=== PATIENT | female | born 1940 | race Caucasian/White ===

== ENCOUNTER 2024-12-01 08:09 | Emergency (ER) | payer MEDICARE, OTHER, SELFPAY ==
--- OUTSIDE RECORDS SUMMARY | 2024-12-01 08:18 | XMS_ITS | Clinical Summary ---
Author Organization [facility] Address [address] [place] [address] Care Team Providers Care Well Cleaner Name Role Phone Andres Doherty MD Primary Care Provider Allergies No known active allergies Medications azithromycin (Zithromax) 250 MG tabletIndication s:Acute bacterial pharyngitis Take 2 tablets orally x 1 day, then 1 tablet orally x 4 days 6 tablet 10/06/2022 Active loratadine-pseud oephedrine ER (Claritin-D 12 Hour) 5-120 MG 12 hr tabletIndication s:Acute bacterial pharyngitis Take 1 tablet by mouth in the morning and 1 tablet before bedtime. Do all this for 7 days. Do not crush, chew, or split. . 14 tablet 10/06/2022 Active Active Problems Problem Noted Date Diagnosed Date Acute bacterial pharyngitis 10/06/2022 Social History Tobacco Use Types Packs/Day Years Used Date Smoking Tobacco: Never Assessed Comments Unknown Sex and Gender Information Value Date Recorded Sex Assigned at Not on file Legal Sex Female 8:20 PM EDT Gender Identity Not on file Sexual Orientation Not on file Last Filed Vital Signs Vital Sign Reading Time Taken Comments Blood Pressure 118/69 10/06/2022 8:25 AM EDT Pulse 88 10/06/2022 8:25 AM EDT Temperature 36.9 C (98.5 F) 10/06/2022 8:25 AM EDT Respiratory Rate - - Oxygen Saturation - - Inhaled Oxygen Concentration - - Weight 85.7 kg (189 lb) 10/06/2022 8:25 AM EDT Height 175.3 cm (5' 9) 10/06/2022 8:25 AM EDT Body Mass Index 27.91 10/06/2022 8:25 AM EDT Plan of Treatment Health Maintenance Due Date Last Done Comments Depression Screening 1952 Zoster Vaccines (1 of 2) 02/12/1992 Respiratory Syncytial Virus (RSV) 60 years and older and/or patients (1 - 1-dose 75+ series) 2017 Medicare Annual Wellness (AWV) 11/15/2020 11/16/2019, 11/12/2018, 09/18/2017, Additional history exists DTaP/Tdap/Td Vaccines (1 - Tdap) 04/29/2022 04/28/2022 COVID-19 Vaccine (4 - season) 2024 06/09/2021, 08/17/2020, 07/19/2020 Influenza Vaccine (#1) 2025 Pneumococcal Vaccine: 50+ Years Completed 01/11/2020, 07/25/2018, 10/07/2015, Additional history exists Bone Density Scan Completed 08/02/2020, 05/11/2015 HPV Vaccines Aged Out No longer eligi ble based on patient's age to complete this topic Hepatitis A Vaccines Aged Out No long er eligible based on patient's age to complete this topic Hepatitis B Vaccines Aged Out No long er eligible based on patient's age to complete this topic Meningococcal B Vaccine Aged Out No l onger eligible based on patient's age to complete this topic Meningococcal Vaccine Aged Out No neena kat eligible based on patient's age to complete this topic Respiratory Syncytial Virus (RSV) <20 months Aged Out No longer eligible based on patient's age to complete this topic Insurance MEDICARE [facility] Care Teams Well Cleaner Relationship Specialty Start Date End Date Andres Doherty MD PCP - General Pulmonary Disease 09/26/21
--- OUTSIDE RECORDS SUMMARY | 2024-12-01 08:18 | XMS_ITS | Patient Health Record ---
Author Organization [facility] Address [address] [place] [id number] Support Name Relationship Address Phone JUAN CARLOS LIANG Guarantor Unknown [phone] Reason For Referral No Information Plan Of Treatment No Information
--- OUTSIDE RECORDS SUMMARY | 2024-12-01 08:18 | XMS_ITS | Patient Health Record ---
Author Organization [facility] Billing Info Address [address] [place] [address] Care Team Providers Care Allergy Specialist Name Role Phone MARY GASTELUM Unavailable [phone] Andres Doherty Unavailable Unavailable Allergies No Known Allergies Reason For Referral No Information Medications Medication SIG (Take, Route, Frequency, Duration) Notes Start Date End Date Status Spiriva Respimat 2.5 MCG/ACT 2 puffs Inhalation Once a day Active Montelukast Sodium 10 MG 1 tablet Orally Once a day for 90 day(s) Active Sertraline HCl 100 MG 1 tablet Orally On ce a day for 90 day(s) Active Synthroid 100 MCG 1 tablet on an empty stomach in the morning Orally ( no generic) Once a day (no substitution or generic) for 90 day(s) Active Omeprazole 40 MG 1 capsule 30 minutes before morning meal Orally Once a day Active Lipitor 20 MG 1 tablet Orally Once a day for 90 day(s) 02/01/2021 Active Advair HFA 230-21 MCG/ACT 2 puffs Inhala tion Twice a day Active Albuterol Sulfate HFA 108 (90 Base) MCG/ACT 2 puffs as needed Inhalation every 6 hrs Active Myrbetriq 25 MG 1 tablet Orally Once a day for 90 day(s) 06/22/2021 Active ProAir HFA 108 (90 Base) MCG/ACT 1 puff as needed Inhalation every 4 hrs Active Vitamin D3 25 MCG (1000 UT) 1 tablet Orally twice a day Active Ipratropium-Albuterol 0.5-2.5 (3) MG/3ML Inhalation for 30 Acti ve GuaiFENesin ER 600 MG 2 tablet as needed Orally every 12 hrs for 7 day(s) 08/01/2021 Active Zinc 100 MG 1 tablet Orally Once a day for 30 day(s) Active Benzonatate 200 MG 1 capsule Orally Thr ee times a day for 15 day(s) 07/24/2021 Active Vitamin C 500 MG as directed Orally Active Azithromycin 250 MG 2 tablet on the s t day, then 1 tablet daily for 4 days Orally Once a day for 5 day(s) 07/24/2021 Active Immunizations Vaccine Route Administration Date Status Comme nts PNEUMOCOCCAL (Past vaccine o f unknown type) Unknown 02/24/2018 Administered PNEUMOCOCCAL (Past vaccine o f unknown type) Unknown 07/25/2018 Administered zCOVID-19 (Moderna) 12+yrs, NO PRES Unknown 07/06/2020 Administered zCOVID-19 (Moderna) 12+yrs, NO PRES Unknown 08/10/2020 Administered Social History Tobacco Use: Social History Observation Description Date Details (start date - stop date) Former Smoker NA - NA Tobacco Status: Question Answer Notes Patient is a former smoker Problems Problem Type SNOMED Code ICD Code Onset Dates Problem Status W/U Status Risk Notes Problem 651024646 Dietary counseli ng and surveillance (Z71.3) Active confirmed Problem 63814272 Other hyperlipidemia (E78.49) Active confirmed Problem Arthralgia of the lower leg (146456424) Right knee pain (M25.561) Active confirmed Problem 663941950 Dyslipidemia (E78.5) Active confirmed Problem 295297420 Frequent headach es (R51) Active confirmed Problem 05730339 Chronic cough (R05) Active confirmed Problem Arthralgia of the pelvic region and thigh (373250962) Left hip pain (M25.552) Active confirmed Problem Arthralgia of the pelvic region and thigh (163135649) Right hip pain (M25.551) Active confirmed Problem 669635941661159 Trochanteric bursitis of right hip (M70.61) Active confirmed Problem 289149809 BMI 32.0-32.9,ad ult (Z68.32) Active confirmed Problem 698683732212825 Gluteal tendinit is of right buttock (M76.01) Active confirmed Problem 364573430 Acquired hypothyroidism (E03.9) Active confirmed Problem 101041966 Major depressive disorder, recurrent episode, unspecified (F33.9) Active confirmed Problem Gastroesophageal reflux disease with esophagitis (463013484) GERD with esophagitis (K21.0) Active confirmed Problem 8869989 Impaired glucose tolerance (R73.02) Active confirmed Problem 183109491 Vocal cord dysfunction (J38.3) Active confirmed Problem 26751359 Chronic obstruct hawa pulmonary disease, unspecified COPD type (J44.9) Active confirmed Problem 45171496 Iliotibial band tendinitis of right side (M76.31) Active confirmed Problem 79167506 Tracheobronchiti s (J40) Active confirmed Problem 840661730667389 Synovial cyst of right popliteal space (M71.21) Active confirmed Problem 601093200 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) Active confirmed Problem 788394617 Localized osteoarthritis of right knee (M17.11) Active confirmed Problem 666760003 History of remov al of cyst (Z98.890) Active confirmed Problem 540254488 Asthma, unspecif ied asthma severity, unspecified whether complicated, unspecified whether persistent (J45.909) Active confirmed Problem 11375268 Spasmodic cough (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 METABOLIC PANEL/ GFR (C940887) 10/2021 HEMOGLOBIN A1C (C114) 11/16/2020 HEMOGLOBIN A1C (C114) 06/22/2021 TSH W/ REFLEX FT4 (E424) 04/22/2019 TSH W/ REFLEX FT4 (E424) 05/16/2020 Culture, Stool (M640) 04/08/2019 XRAY-CHEST PA AND LATERAL (LAURO) 07/28/19 Basic Metabolic Panel (8) 04/22/2019 Basic Metabolic Panel (8) 05/16/2020 Basic Metabolic Panel (8) 07/16/2019 Comp. Metabolic Panel (14) 04/08/2019 Sedimentation Rate-Westergren 07/16/2019 TSH + Free T4 04/08/2019 COMP METABOLIC PANEL (THI) 02/01/2021 CBC W/ DIFF/PLATELET (THI) 04/08/2019 CBC W/ DIFF/PLATELET (THI) 07/16/2019 CBC W/ DIFF/PLATELET (THI) 05/16/2020 CBC W/DIFF(CH-CBCX) 11/16/2020 COMP METABOLIC PANEL([facility]-CMP) LIPID PANEL([facility]-LIPID) 11/16/2020 TSH c Reflex FT4([facility]-TSHRFX) 11/16/2020 Future Test Test Name Order Date MAMMOGRAPHY, SCREENING BILATERAL (06008) 07/18/2020 DXA BONE DENSITY STUDY 1 + SITS AXIAL SK EL (93166) 07/18/2020 CT-BRAIN WO CONTRAST (88474) 07/18/2020 Insurance Providers Payer Name Payer Address Payer Phone Subscriber Number Group Number Insured Name Patient Relationship to Insured Coverage Start Date Coverage End Date MEDICARE [place] PART B [address] [facility] [place] [id number] Susan Goel Self - patient is the insured 7 9 [employer] [address] [place], [place] [id number] Susan Goel Self - patient is the insured 5 9 Medications Administered Medication Instructions Date of Administration Dosage Notes MethylPREDNISolone Acetate 02/09/2022 80 mg Lidocaine HCl 02/09/2022 5 mL Medical (General) History Medical History History ICD Code Hypothyroidism Headaches on sertraline hypothyroidism IBS with diarrhea Surgical History Surgery Date(Month/Year) (B) Hands Sx x 2. Right on 2018. left on Dec 2018. Bones removed due to fusion Bladder Suspension Cervical Fusion Partial Hysterectomy (L) Ankle Fx multiple colonoscopies last was around a ge 74. normal mammogram Apr 2021 normal. plan q 3 year s DEXA 2020 normal with hx 2018 of osteope sarai cholecystectomy early colonoscopy and pt told she doesn't need another one. normal. Doesnt want to do FIT 05/27/[address] Cabezas performed endoscopy to ev aluate vocal cords. stress test with Dr Colmenares mar 2020 ne g cyst removal --back of knee 05/11/20 Hospitalization History Reason Date(Month/Year) See Surgical hx
[2024-12-01 08:22] VITALS: BP 122/64; PULSE 88; RESP 20; TEMP 36.6; O2SAT 96
--- NOTE | 2024-12-01 08:35 | ED_ITS ---
HPI - General Adult General Chief complaint: Upper Respiratory Infection Stated complaint: Cold Like History of Present Illness HPI narrative: Susan Goel Is an 84-year-old female who presents today with complaints of having worsening productive cough over the past 4-5 days. Denies chest pain/ denies SOB. Hx of asthma. Related Data Home Medications ?Medication ?Instructions ?Recorded ?Confirmed ?Last Taken ?Type albuterol sulfate 90 mcg/actuation inhalation 12/01/24 Unknown History aerosol inhaler famotidine 20 mg tablet mg 12/01/24 Unknown History gabapentin 300 mg capsule mg 12/01/24 Unknown History levothyroxine 100 mcg tablet mcg 12/01/24 Unknown History (Synthroid) montelukast 10 mg tablet mg 12/01/24 Unknown History omeprazole 40 mg capsule,delayed mg 12/01/24 Unknown History release oxybutynin chloride 5 mg tablet mg 12/01/24 Unknown History rosuvastatin 10 mg tablet mg 12/01/24 Unknown History sertraline 100 mg tablet mg 12/01/24 Unknown History tiotropium bromide 2.5 inhalation 12/01/24 Unknown History mcg/actuation mist for inhalation (Spiriva Respimat) Allergies Allergy/AdvReac Type Severity Reaction Status Date / Time No Known Allergies Allergy Verified 12/01/24 08:29 Review of Systems Review of Systems: All systems reviewed & are unremarkable except as noted in HPI and below Exam Narrative: GENERAL: Well-appearing, well-nourished, and in no acute distress. HEAD: Normocephalic, atraumatic. EYES: PERRLA and EOMI. ENT: Nares clear, no rhinorrhea or epistaxis. Mucous membranes moist. Oropharynx without tonsillar hypertrophy exudate or other lesions. Bilateral TMs pearly patton non bulging NECK: Supple. No adenopathy or masses. No carotid bruits or JVD CHEST: Clear with adventitious sounds in the bases posteriorly to auscultation. No respiratory distress. HEART: Regular rate and rhythm. No murmur heard. Normal peripheral pulses. ABDOMEN: Soft, nontender, nondistended, normal active bowel sounds. EXTREMITIES: Normal range of motion. No edema. SKIN: Warm, dry, no rash. NEURO: No focal deficits. Alert and oriented x3. PSYCH: Normal mood and affect. Course Course Level of Care: Express Care Visit Vital Signs Vital signs: Vital Signs Temperature 36.6 C 07/08/25 08:22 Pulse Rate 88 12/01/24 08:22 Respiratory Rate 20 12/01/24 08:22 Blood Pressure 122/64 12/01/24 08:22 Pulse Oximetry 96 12/01/24 08:22 Oxygen Delivery Room Air 12/01/24 08:22 Temperature 36.6 C 12/01/24 08:22 Pulse Rate 88 12/01/24 08:22 Respiratory Rate 20 12/01/24 08:22 Blood Pressure 122/64 12/01/24 08:22 Pulse Oximetry 96 12/01/24 08:22 Oxygen Delivery Room Air 12/01/24 08:22 Medical Decision Making MDM Narrative Medical decision making narrative: This 84 year old patient presents with symptoms most suggestive of respiratory tract infection. Lungs are noted to have mild adventitious sounds in the bases bilaterally without any respiratory distress or accessory muscle use. Sating 96% on RA denies SOB or CP concern for early pneumonia based on hx and exam Will start treatment with Augmenting and Doxy Patient discharged home in stable condition with expectant management. Return precautions were provided. Procedures: Pulse oximetry interpretation - not hypoxic. Review of medical records. DISPOSITION: Discharged home in stable condition. IMPRESSION: Acute Pneumonia Medical Records Medical records reviewed: Yes I reviewed the external patient's medical records. Vital Signs Vital Signs: Vital Signs Temperature 36.6 C 12/01/24 08:22 Pulse Rate 88 12/01/24 08:22 Respiratory Rate 20 12/01/24 08:22 Blood Pressure 122/64 12/01/24 08:22 Pulse Oximetry 96 12/01/24 08:22 Oxygen Delivery Room Air 12/01/24 08:22 Temperature 36.6 C 12/01/24 08:22 Pulse Rate 88 12/01/24 08:22 Respiratory Rate 20 12/01/24 08:22 Blood Pressure 122/64 12/01/24 08:22 Pulse Oximetry 96 12/01/24 08:22 Oxygen Delivery Room Air 12/01/24 08:22 Vitals reviewed by nj Discharge Plan Discharge Clinical Impression: Pneumonia Qualifiers: Pneumonia type: due to unspecified organism Laterality: unspecified laterality Lung location: lower lobe of lung Qualified Code(s): J18.9 - Pneumonia, unspecified organism Patient Disposition: Home Condition: Stable Instructions: Antibiotic Form Additional Instructions: Start taking the two antibiotics twice daily Augmentin twice daily for 1 week Doxycyline twice daily for 5 days Start taking mucinex twice daily for 7-10 days Push hydration, get plenty of rest Follow up with your PCP in 1-2 weeks If you develop shortness of breath, chest pain, vomiting or any other worsening symptoms proceed to the ER. Patient Language: Mohawk Prescriptions: New amoxicillin-pot clavulanate 875-125 mg tablet 1 tablet PO Q12H Qty: 14 0RF doxycycline hyclate 100 mg capsule 100 mg PO Q12H Qty: 10 0RF guaifenesin [Mucinex] 1,200 mg tablet extended release 12hr 1,200 mg PO Q12H Qty: 20 0RF No Action sertraline 100 mg tablet omeprazole 40 mg capsule,delayed release(DR/EC) levothyroxine [Synthroid] 100 mcg tablet famotidine 20 mg tablet gabapentin 300 mg capsule montelukast 10 mg tablet albuterol sulfate 90 mcg/actuation HFA aerosol inhaler INHALATION oxybutynin chloride 5 mg tablet rosuvastatin 10 mg tablet Spiriva Respimat 2.5 mcg/actuation mist INHALATION Follow-up/Referrals: PHYSICIAN,ELECTRIC SCREW DRIVER OPERATOR [Primary Care Provider] - Time of Disposition: 08:44
== END 2024-12-01 08:49 | disposition home or self-care (01) ==
PROVIDERS: Emergency Provider Nurse Practitioner Family
DX: J18.9 Pneumonia, unspecified organism (principal); J45.909 Unspecified asthma, uncomplicated
CPT/HCPCS: 99203; G0463